=== PATIENT | male | born 1940 | race Asian ===

== ENCOUNTER 2018-06-21 08:35 | Inpatient (IN) | payer OTHER ==
[~2018-06-21] VITALS: Ht 170.2 cm; Wt 82.1 kg
[2018-06-21 08:39] VITALS: Ht 170.2 cm; Wt 82.1 kg
[2018-06-21] MEDS ORDERED: HYD25 (09:07)
[2018-06-21] MEDS ORDERED: GLIPIZIDE10 M2 PO (09:07)
[2018-06-21] MEDS ORDERED: XARELTO10 M1 (09:07)
[2018-06-21] MEDS ORDERED: LIPITOR40 MG PO (09:08)
[2018-06-21 09:10] LABS: BASOPHIL % 0.4 % (0-2); PLATELET COUNT 224 x10^3mcL (130-400); RED CELL DISTRIBUTION WIDTH 12.3 % (11.5-14.5)
[2018-06-21 09:22] LABS: CALCIUM 8.4 mg/dL (8.5-10.1); CHLORIDE SERUM 109 mmol/L (98-107); CREATININE SERUM 2.3 mg/dL (0.7-1.3); GLUCOSE SERUM 154 mg/dL (74-106); POTASSIUM SERUM 3.8 mmol/L (3.5-5.1); SODIUM SERUM 144 mmol/L (136-145)
[2018-06-21 09:27] LABS: ALKALINE PHOSPHATASE 81 U/L (46-116); ALT/SGPT 39 U/L (16-63); AST/SGOT 25 U/L (15-37); BILIRUBIN TOTAL 0.25 mg/dL (0.20-1.00); TOTAL PROTEIN, SERUM 6.6 g/dL (6.4-8.2)
[2018-06-21 09:30] LABS: ALBUMIN 3.1 g/dL (3.4-5.0)
[2018-06-21 13:13] VITALS: BP 126/62
[2018-06-21 16:15] VITALS: BP 123/58
[2018-06-21 19:47] LABS: microscopic required? YES; urine erythrocyte TRACE (NEGATIVE)
[2018-06-21 20:51] VITALS: BP 120/57
[2018-06-22 05:55] VITALS: BP 120/54
[2018-06-22 06:33] LABS: CALCIUM 8.1 mg/dL (8.5-10.1); CARBON DIOXIDE 25.6 mmol/L (21-32); CHLORIDE SERUM 108 mmol/L (98-107); CREATININE SERUM 2.1 mg/dL (0.7-1.3); GLUCOSE SERUM 111 mg/dL (74-106); POTASSIUM SERUM 3.9 mmol/L (3.5-5.1); SODIUM SERUM 143 mmol/L (136-145)
[2018-06-22 06:43] LABS: BASOPHIL % 0.3 % (0-2); PLATELET COUNT 218 x10^3mcL (130-400); RED CELL DISTRIBUTION WIDTH 13.1 % (11.5-14.5)
[2018-06-22 07:30] LABS: CHOLESTEROL/HDL RATIO 4.3
[2018-06-22 08:52] VITALS: BP 128/65
[2018-06-22 11:26] LABS: FREE T4 0.92 ng/dL (0.76-1.46); FREE THYROXINE INDEX 2.3 ug/dL (1.4-4.5); T3 TOTAL 0.98 ng/mL; T4(THYROXINE) 6.7 ug/dL (4.7-13.3)
[2018-06-22 11:48] VITALS: BP 138/58
[2018-06-22 16:56] VITALS: BP 148/57
[2018-06-22 21:29] VITALS: BP 116/65
[2018-06-23 05:47] VITALS: BP 145/67
[2018-06-23 05:49] LABS: IRON 84 ug/dL (65-170); TOTAL IRON BINDING CAPACITY 248 ug/dL (250-450)
[2018-06-23 05:50] LABS: RED BLOOD CELLS 3.98 M/mm3 (4.52-5.90)
[2018-06-23 09:09] VITALS: BP 142/67
[2018-06-23 11:51] VITALS: BP 142/67
[2018-06-23 12:11] VITALS: BP 137/72
[2018-06-23] MEDS ORDERED: ADA30 PO (14:53)
[2018-06-23 15:25] VITALS: BP 146/73
== END 2018-06-23 15:46 | disposition home or self-care (01) | DRG 73 ==
LOC: ED 08:35 → DU 11:04
PROVIDERS: Emergency Medicine; Family Medicine
DX: G90.9 Disorder of the autonomic nervous system, unspecified (principal); N17.0 Acute kidney failure with tubular necrosis; E44.0 Moderate protein-calorie malnutrition; D68.69 Other thrombophilia; R55 Syncope and collapse; E87.8 Other disorders of electrolyte and fluid balance, not elsewhere classified; R00.1 Bradycardia, unspecified; I44.0 Atrioventricular block, first degree; I48.2 Chronic atrial fibrillation; I12.9 Hypertensive chronic kidney disease with stage 1 through stage 4 chronic kidney disease, or unspecified chronic kidney disease; N18.9 Chronic kidney disease, unspecified; E11.22 Type 2 diabetes mellitus with diabetic chronic kidney disease; E11.65 Type 2 diabetes mellitus with hyperglycemia; E78.5 Hyperlipidemia, unspecified; Z68.25 Body mass index [BMI] 25.0-25.9, adult; Z72.0 Tobacco use; Z79.01 Long term (current) use of anticoagulants
CPT/HCPCS: 84439; J7030; Q0092